=== PATIENT | male | born 1955 | race Caucasian/White ===

== ENCOUNTER 2023-11-23 11:08 | Outpatient (CLI) | payer BC | END 2023-11-23 11:09 | disposition home or self-care (01) | LOC: CSHRAD 11:08 | PROVIDERS: ATTEND Internal Medicine Rheumatology | DX: M54.41 Lumbago with sciatica, right side (principal); M47.816 Spondylosis without myelopathy or radiculopathy, lumbar region | CPT/HCPCS: 72100 ==